=== PATIENT | female | born 1980 | race Caucasian/White ===

== ENCOUNTER 2024-06-30 13:20 | Emergency (ER) | payer OTHER, BC ==
[~2024-06-30] VITALS: Ht 154.9 cm; Wt 97.8 kg
[2024-06-30 13:27] VITALS: BP 147/82; PULSE 81; RESP 16; O2SAT 94
[2024-06-30] MEDS ORDERED: IBUP-1986 PO (15:05)
[2024-06-30] MEDS ORDERED: CYCL-1 PO (15:05)
[2024-06-30 15:22] VITALS: TEMP 98
== END 2024-06-30 15:26 | disposition home or self-care (01) ==
LOC: ER 13:21
DX: S13.4XXA Sprain of ligaments of cervical spine, initial encounter (principal); M54.2 Cervicalgia; M54.6 Pain in thoracic spine; R07.89 Other chest pain; Z79.899 Other long term (current) drug therapy; Z79.1 Long term (current) use of non-steroidal anti-inflammatories (NSAID); V49.9XXA Car occupant (driver) (passenger) injured in unspecified traffic accident, initial encounter; Y93.89 Activity, other specified; Y92.89 Other specified places as the place of occurrence of the external cause; Y99.8 Other external cause status
CPT/HCPCS: 71046; 72040; 99284